=== PATIENT | male | born 1990 | race Caucasian/White ===

== ENCOUNTER 2016-12-06 04:46 | Emergency (ER) | payer BC ==
[~2016-12-06 04:46] MED LIST: CLEOCIN HCL300 MG PO; HUMALOG100 UNIT/1 SQ; LEVAQUIN750 MG PO; LEVEMIR IN100 UNITS/ SQ; LORTAB 7.5-3251 EACH PO; NOVOLOG 10100 UNITS/ INJ; TYLENOL 325MG325 MG PO
== END 2016-12-06 05:33 | disposition home or self-care (01) ==
LOC: ER1 04:46
DX: L98.9 Disorder of the skin and subcutaneous tissue, unspecified (principal); R23.8 Other skin changes; E11.9 Type 2 diabetes mellitus without complications; F17.200 Nicotine dependence, unspecified, uncomplicated; Z88.0 Allergy status to penicillin; Z88.1 Allergy status to other antibiotic agents; Z88.2 Allergy status to sulfonamides; Z79.4 Long term (current) use of insulin
CPT/HCPCS: 99282

== ENCOUNTER 2021-02-17 22:28 | Inpatient (IN) | payer OTHER ==
[~2021-02-17] VITALS: Ht 193 cm; Wt 148.8 kg
[~2021-02-17 22:28] MED LIST changes: +ASPIRIN 325MG325 MG PO; +BACTROBAN OINT22 GM EXT; +BASAGLAR K100 UNIT/1 SQ; +CYCLOBENZAPRINE10 MG PO; +DOXYCYCLINE HY100 MG PO; +HUMALOG100 UNIT/3 SQ; +HUMULIN R100 UNIT/1 SC; +HUMULIN R100 UNIT/1 SQ; +LANTUS100 UNIT/1 SC; +LANTUS100 UNIT/1 SQ; +LIPITOR TAB 1010 MG PO; +LOPRESSOR 25 MG25 MG PO; +NEURONTIN 100100 MG PO; +NORVASC10 MG PO; +PERCOCET 10-321 EACH PO; +PERCOCET 5-3251 EACH PO; +PERCOCET 5/325 T1 EA PO; +PHENERGAN 25 MG25 M1 PO; +PRAVASTATIN SOD10 MG PO; +SANTYL OINT 3030 GM TOP; +TEFLARO600 MG IV; +VANCOCIN IV 11000 MG IV; +ZYVOX600 MG PO
[2021-02-18 00:21] LABS: HEMOGLOBIN 15.7 gm/dl (14.0-17.5); RED BLOOD COUNT 5.35 M/UL (4.20-5.50); WHITE BLOOD COUNT 16.3 K/UL (4.5-11.0)
[2021-02-18 00:32] LABS: BUN/CREATININE RATIO 15 (0-10)
[2021-02-19 04:20] LABS: HEMOGLOBIN 14.5 gm/dl (14.0-17.5); RED BLOOD COUNT 5.05 M/UL (4.20-5.50)
[2021-02-19 04:22] LABS: WHITE BLOOD COUNT 7.4 K/UL (4.5-11.0)
[2021-02-19 04:45] LABS: BUN/CREATININE RATIO 25 (0-10)
--- NOTE | 2021-02-20 00:40 | NUR ---
REPORT FROM DENIA SANTOS RN AT [id number]. PATIENT A&O. NO DISTRESS NOTED. PT STATED THAT HE DID NOT NEED ANYTHING AT THIS TIME.
[2021-02-20 04:47] LABS: HEMOGLOBIN 14.2 gm/dl (14.0-17.5); RED BLOOD COUNT 4.88 M/UL (4.20-5.50); WHITE BLOOD COUNT 5.9 K/UL (4.5-11.0)
[2021-02-20 05:15] LABS: BUN/CREATININE RATIO 19 (0-10)
--- NOTE | 2021-02-20 09:23 | NUR ---
PATIENT RETURNED TO FLOOR FROM SURGERY AT THIS TIME. RESTING QUIETLY WITH EYES CLOSED, EASILY AWAKENS TO VERBAL STIMULI. SPLINT AND DENG WRAP IN PLACE TO RIGHT LOWER EXTREMITY. CLEAN, DRY, AND IN TACT. VITAL SIGNS WNL. WILL MONITOR. CALL [facility] [place].
[2021-02-21 03:44] LABS: BUN/CREATININE RATIO 23 (0-10)
[2021-02-22 03:12] LABS: HEMOGLOBIN 13.8 gm/dl (14.0-17.5); RED BLOOD COUNT 4.77 M/UL (4.20-5.50); WHITE BLOOD COUNT 7.2 K/UL (4.5-11.0)
[2021-02-22 03:29] LABS: BUN/CREATININE RATIO 18 (0-10)
[2021-02-22] MEDS ORDERED: PERCOCET 7.5-31 EACH PO (12:49)
[2021-02-22] MEDS ORDERED: INVANZ 1 GM VIAL1 GM IV (12:49)
[2021-02-22] MEDS ORDERED: GABAPENTIN300 MG PO (12:49)
== END 2021-02-22 15:58 | disposition home or self-care (01) | DRG 464 ==
LOC: ER1 22:28 → M/S 02-18 01:38 → CDU 02-18 01:38 → M/S 02-18 08:19
PROVIDERS: Emergency Medicine; Internal Medicine; Physician Assistant Medical; Podiatrist Foot & Ankle Surgery; ADMIT Internal Medicine Infectious Disease
PROC: 0HRMXK3 Replacement of Right Foot Skin with Nonautologous Tissue Substitute, Full Thickness, External Approach (ICD-10-PCS; 2021-02-20)
PROC: 0JBQ0ZZ Excision of Right Foot Subcutaneous Tissue and Fascia, Open Approach (ICD-10-PCS; principal; 2021-02-20 07:00)
DX: T87.43 Infection of amputation stump, right lower extremity (principal); M00.271 Other streptococcal arthritis, right ankle and foot; L02.611 Cutaneous abscess of right foot; M86.671 Other chronic osteomyelitis, right ankle and foot; N17.9 Acute kidney failure, unspecified; E11.52 Type 2 diabetes mellitus with diabetic peripheral angiopathy with gangrene; I96 Gangrene, not elsewhere classified; Z20.822 Contact with and (suspected) exposure to COVID-19; E11.69 Type 2 diabetes mellitus with other specified complication; E11.40 Type 2 diabetes mellitus with diabetic neuropathy, unspecified; I10 Essential (primary) hypertension; E78.5 Hyperlipidemia, unspecified; E86.0 Dehydration; E66.9 Obesity, unspecified; Z68.39 Body mass index [BMI] 39.0-39.9, adult; Z86.14 Personal history of Methicillin resistant Staphylococcus aureus infection; Z90.49 Acquired absence of other specified parts of digestive tract; Z89.421 Acquired absence of other right toe(s); Z89.422 Acquired absence of other left toe(s); Z88.1 Allergy status to other antibiotic agents; Z88.5 Allergy status to narcotic agent; Z88.0 Allergy status to penicillin; Z88.2 Allergy status to sulfonamides; Z82.3 Family history of stroke; Z82.49 Family history of ischemic heart disease and other diseases of the circulatory system; Z87.891 Personal history of nicotine dependence
CPT/HCPCS: 36415; 71045; 73630; 73718; 80048; 80053; 80202; 82550; 82553; 82962; 83735; 84484; 85025; 85027; 85652; 86140; 87040; 87070; 87077; 87205; 93005; 96374; 96375; 99284; J1100; J1170; J1335; J1650; J1885; J2001; J2250; J2270; J2370; J2405; J2704; J2795; J3010; J3370; J7050; J7070; J7120; Q4133; U0002

== ENCOUNTER → 2021-02-23 | Outpatient (CLI) | payer OTHER ==
[~2021-02-23] VITALS: Ht 193 cm; Wt 147.4 kg
[~2021-02-23] MED LIST changes: +GABAPENTIN300 MG PO; +INVANZ 1 GM VIAL1 GM IV; +PERCOCET 7.5-31 EACH PO
== END ==
LOC: OPSV 07:11
DX: E11.69 Type 2 diabetes mellitus with other specified complication (principal); M86.9 Osteomyelitis, unspecified; Z88.1 Allergy status to other antibiotic agents; Z88.5 Allergy status to narcotic agent; Z88.0 Allergy status to penicillin; Z88.2 Allergy status to sulfonamides
CPT/HCPCS: 96365; J1335

== ENCOUNTER → 2021-02-24 | Outpatient (CLI) | payer OTHER ==
[~2021-02-24] VITALS: Ht 193 cm; Wt 145.1 kg
== END ==
LOC: OPSV 07:15
DX: E11.621 Type 2 diabetes mellitus with foot ulcer (principal); E11.69 Type 2 diabetes mellitus with other specified complication; L97.519 Non-pressure chronic ulcer of other part of right foot with unspecified severity; M86.171 Other acute osteomyelitis, right ankle and foot
CPT/HCPCS: 96365; J1335

== ENCOUNTER → 2021-02-25 | Outpatient (CLI) | payer OTHER ==
[~2021-02-25] VITALS: Ht 193 cm; Wt 147.4 kg
== END ==
LOC: OPSV 07:39
DX: E11.69 Type 2 diabetes mellitus with other specified complication (principal); M86.8X7 Other osteomyelitis, ankle and foot
CPT/HCPCS: 96365; J1335

== ENCOUNTER → 2021-02-26 | Outpatient (CLI) | payer OTHER ==
[~2021-02-26] VITALS: Ht 193 cm; Wt 147.4 kg
== END ==
LOC: OPSV 07:52
DX: E11.621 Type 2 diabetes mellitus with foot ulcer (principal)
CPT/HCPCS: 96365; J1335

== ENCOUNTER → 2021-02-27 | Outpatient (CLI) | payer OTHER ==
[~2021-02-27] VITALS: Ht 193 cm; Wt 147.4 kg
== END ==
LOC: OPSV 07:30
DX: E11.621 Type 2 diabetes mellitus with foot ulcer (principal); E11.69 Type 2 diabetes mellitus with other specified complication; M86.171 Other acute osteomyelitis, right ankle and foot; L97.519 Non-pressure chronic ulcer of other part of right foot with unspecified severity
CPT/HCPCS: 96365; J1335

== ENCOUNTER → 2021-02-28 | Outpatient (CLI) | payer OTHER ==
[~2021-02-28] VITALS: Ht 193 cm; Wt 147.4 kg
== END ==
LOC: OPSV 07:03
DX: E11.69 Type 2 diabetes mellitus with other specified complication (principal); M86.9 Osteomyelitis, unspecified; Z88.1 Allergy status to other antibiotic agents; Z88.0 Allergy status to penicillin; Z88.2 Allergy status to sulfonamides; Z88.5 Allergy status to narcotic agent
CPT/HCPCS: 96365; J1335

== ENCOUNTER → 2021-03-01 | Outpatient (CLI) | payer OTHER ==
[~2021-03-01] VITALS: Ht 193 cm; Wt 147.4 kg
== END ==
LOC: OPSV 07:15
DX: E11.69 Type 2 diabetes mellitus with other specified complication (principal); M86.8X7 Other osteomyelitis, ankle and foot; E11.628 Type 2 diabetes mellitus with other skin complications; L08.89 Other specified local infections of the skin and subcutaneous tissue
CPT/HCPCS: 96365; J1335

== ENCOUNTER → 2021-03-02 | Outpatient (CLI) | payer OTHER ==
[~2021-03-02] VITALS: Ht 193 cm; Wt 147.4 kg
== END ==
LOC: OPSV 07:15
DX: E11.621 Type 2 diabetes mellitus with foot ulcer (principal); L97.519 Non-pressure chronic ulcer of other part of right foot with unspecified severity; M86.8X7 Other osteomyelitis, ankle and foot
CPT/HCPCS: 96365; J1335

== ENCOUNTER → 2021-03-03 | Outpatient (CLI) | payer OTHER ==
[~2021-03-03] VITALS: Ht 193 cm; Wt 147.4 kg
== END ==
LOC: OPSV 07:22
DX: E11.69 Type 2 diabetes mellitus with other specified complication (principal); M86.8X7 Other osteomyelitis, ankle and foot
CPT/HCPCS: 96365; J1335

== ENCOUNTER → 2021-03-04 | Outpatient (CLI) | payer OTHER ==
[~2021-03-04] VITALS: Ht 193 cm; Wt 147.4 kg
== END ==
LOC: OPSV 07:28
DX: E11.621 Type 2 diabetes mellitus with foot ulcer (principal); E11.69 Type 2 diabetes mellitus with other specified complication; M86.171 Other acute osteomyelitis, right ankle and foot; L97.519 Non-pressure chronic ulcer of other part of right foot with unspecified severity
CPT/HCPCS: 96365; J1335

== ENCOUNTER 2022-02-02 00:53 | Inpatient (IN) | payer OTHER ==
[~2022-02-02] VITALS: Ht 193 cm; Wt 161.6 kg
[~2022-02-02 00:53] MED LIST changes: +OXYCODONE-ACET1 EACH PO
[2022-02-02 01:55] LABS: HEMOGLOBIN 14.1 gm/dl (14.0-17.5); RED BLOOD COUNT 4.93 M/UL (4.20-5.50); WHITE BLOOD COUNT 10.6 K/UL (4.5-11.0)
[2022-02-02 02:11] LABS: BUN/CREATININE RATIO 16 (0-10)
[2022-02-02] MEDS ORDERED: TOUJEO MAX300 UNIT/1 SQ (10:59)
[2022-02-02] MEDS ORDERED: MELOXICAM15 MG PO (10:59)
[2022-02-02] MEDS ORDERED: PROMETHAZINE HC25 M1 PO (11:00)
[2022-02-02] MEDS ORDERED: ATORVASTATIN CA10 MG PO (11:02)
[2022-02-03 03:20] LABS: HEMOGLOBIN 13.5 gm/dl (14.0-17.5); RED BLOOD COUNT 4.77 M/UL (4.20-5.50); WHITE BLOOD COUNT 8.1 K/UL (4.5-11.0)
[2022-02-03 03:59] LABS: BUN/CREATININE RATIO 20 (0-10)
[2022-02-04 05:36] LABS: HEMOGLOBIN 13.6 gm/dl (14.0-17.5); RED BLOOD COUNT 4.82 M/UL (4.20-5.50); WHITE BLOOD COUNT 7.1 K/UL (4.5-11.0)
[2022-02-04 05:59] LABS: BUN/CREATININE RATIO 18 (0-10)
[2022-02-05 02:57] LABS: HEMOGLOBIN 13.3 gm/dl (14.0-17.5); RED BLOOD COUNT 4.75 M/UL (4.20-5.50)
[2022-02-05 03:19] LABS: BUN/CREATININE RATIO 17 (0-10)
[2022-02-06 04:32] LABS: HEMOGLOBIN 13.6 gm/dl (14.0-17.5); RED BLOOD COUNT 4.83 M/UL (4.20-5.50)
[2022-02-06 05:00] LABS: BUN/CREATININE RATIO 16 (0-10)
[2022-02-07 03:37] LABS: HEMOGLOBIN 13.7 gm/dl (14.0-17.5); RED BLOOD COUNT 4.91 M/UL (4.20-5.50)
[2022-02-07 03:38] LABS: WHITE BLOOD COUNT 11.9 K/UL (4.5-11.0)
[2022-02-07 04:40] LABS: BUN/CREATININE RATIO 21 (0-10)
[2022-02-08 03:14] LABS: HEMOGLOBIN 13.2 gm/dl (14.0-17.5); RED BLOOD COUNT 4.71 M/UL (4.20-5.50)
[2022-02-08 03:28] LABS: WHITE BLOOD COUNT 8.7 K/UL (4.5-11.0)
[2022-02-08 03:30] LABS: BUN/CREATININE RATIO 18 (0-10)
[2022-02-09 07:32] LABS: HEMOGLOBIN 13.3 gm/dl (14.0-17.5); RED BLOOD COUNT 4.83 M/UL (4.20-5.50); WHITE BLOOD COUNT 8.6 K/UL (4.5-11.0)
[2022-02-09 07:52] LABS: BUN/CREATININE RATIO 13 (0-10)
[2022-02-10 02:48] LABS: BUN/CREATININE RATIO 20 (0-10)
[2022-02-10] MEDS ORDERED: OXYCODONE-ACET1 EACH PO (11:16)
[2022-02-10] MEDS ORDERED: BACLOFEN10 MG PO (11:16)
[2022-02-10] MEDS ORDERED: ZYVOX600 MG PO ×2 (11:18→11:19)
== END 2022-02-10 14:22 | disposition home or self-care (01) | DRG 239 ==
LOC: ER1 00:53 → CDU 02:39 → M/S 02:39
PROVIDERS: Emergency Medicine; Internal Medicine; Physician Assistant Medical; Podiatrist Foot & Ankle Surgery; ADMIT Internal Medicine
PROC: 0HRMXK4 Replacement of Right Foot Skin with Nonautologous Tissue Substitute, Partial Thickness, External Approach (ICD-10-PCS; 2022-02-06)
PROC: 0Y6M0ZC Detachment at Right Foot, Partial 3rd Ray, Open Approach (ICD-10-PCS; principal; 2022-02-06 07:30)
PROC: 0Y6V0Z0 Detachment at Right 4th Toe, Complete, Open Approach (ICD-10-PCS; 2022-02-06 07:30)
PROC: 0JBQ0ZZ Excision of Right Foot Subcutaneous Tissue and Fascia, Open Approach (ICD-10-PCS; 2022-02-06 07:30)
DX: E11.52 Type 2 diabetes mellitus with diabetic peripheral angiopathy with gangrene (principal); A48.0 Gas gangrene; L02.611 Cutaneous abscess of right foot; L03.115 Cellulitis of right lower limb; M86.8X7 Other osteomyelitis, ankle and foot; Z68.41 Body mass index [BMI] 40.0-44.9, adult; Z20.822 Contact with and (suspected) exposure to COVID-19; E66.01 Morbid (severe) obesity due to excess calories; E11.628 Type 2 diabetes mellitus with other skin complications; I16.0 Hypertensive urgency; I10 Essential (primary) hypertension; E11.42 Type 2 diabetes mellitus with diabetic polyneuropathy; E11.69 Type 2 diabetes mellitus with other specified complication; E11.621 Type 2 diabetes mellitus with foot ulcer; L97.519 Non-pressure chronic ulcer of other part of right foot with unspecified severity; K76.0 Fatty (change of) liver, not elsewhere classified; Z79.4 Long term (current) use of insulin; Z90.49 Acquired absence of other specified parts of digestive tract; Z89.421 Acquired absence of other right toe(s); Z88.6 Allergy status to analgesic agent; Z88.1 Allergy status to other antibiotic agents; Z88.0 Allergy status to penicillin; Z88.2 Allergy status to sulfonamides; Z82.3 Family history of stroke; Z82.49 Family history of ischemic heart disease and other diseases of the circulatory system
CPT/HCPCS: 36415; 71045; 73620; 73630; 73718; 80048; 80053; 80202; 81001; 82962; 83036; 83605; 83735; 84100; 85025; 85027; 85652; 86140; 87040; 87070; 87077; 87086; 87186; 87205; 96374; 96375; 99284; J0360; J1100; J1170; J1335; J1650; J1885; J2001; J2020; J2250; J2405; J2550; J2704; J2795; J3010; J3370; J7070; Q4133

== ENCOUNTER → 2022-03-14 | Outpatient (CLI) | payer OTHER ==
[~2022-03-14] MED LIST changes: +ATORVASTATIN CA10 MG PO; +BACLOFEN10 MG PO; +MELOXICAM15 MG PO; +PROMETHAZINE HC25 M1 PO; +TOUJEO MAX300 UNIT/1 SQ
[2022-03-14 09:22] LABS: HEMOGLOBIN 16.2 gm/dl (14.0-17.5); RED BLOOD COUNT 5.57 M/UL (4.20-5.50); WHITE BLOOD COUNT 10.5 K/UL (4.5-11.0)
[2022-03-14 09:48] LABS: BUN/CREATININE RATIO 20 (0-10)
== END ==
LOC: LAB 08:49
PROVIDERS: Podiatrist Foot & Ankle Surgery
DX: L08.89 Other specified local infections of the skin and subcutaneous tissue (principal)
CPT/HCPCS: 36415; 80048; 85025